=== PATIENT | male | born 1950 ===

== ENCOUNTER 2018-07-24 07:23 | Day surgery (SDC) | payer OTHER ==
[2018-07-23 10:55] VITALS: BMI 31.2
[2018-07-24] MEDS ORDERED: Propofol 10 mg/ml Inj (20 ML) ONE (08:17)
[2018-07-24] MEDS ORDERED: Etomidate 20 mg/10ml Inj IV ONE (09:36)
[2018-07-24 10:02] VITALS: TEMP 97
[2018-07-24 10:17] VITALS: O2SAT 98
[2018-07-24 10:52] VITALS: BP 130/85; PULSE 71; RESP 18
== END 2018-07-24 10:48 | disposition home or self-care (01) ==
LOC: C.ENDO 07:23
PROVIDERS: ATTEND Internal Medicine Gastroenterology
DX: Z12.11 Encounter for screening for malignant neoplasm of colon (principal); Z86.010 Personal history of colon polyps; D12.4 Benign neoplasm of descending colon; K64.8 Other hemorrhoids
CPT/HCPCS: 45380; 82948; 88305; J2001; J2704